=== PATIENT | female | born 2005 ===

== ENCOUNTER 2024-07-04 16:36 | Emergency (ER) | payer SELFPAY ==
[2024-07-04 16:38] VITALS: BP 109/80
[2024-07-04 16:59] LABS: % Basophils 0.4 % (0-2); % Eosinophils 0.9 % (0-6); % Immature Granulocytes 0.1 % (0-0.5); % Lymphocytes 30.7 % (20.5-51.1); % Monocytes 6.4 % (1.7-9.3); % Neutrophils 61.5 % (42.2-75.2); Absolute Eosinophils 0.1 10^3/uL (0-0.7); Absolute Lymphocytes 2.1 10^3/uL (1.2-3.4); Absolute Monocytes 0.4 10^3/uL (0.1-0.6); Absolute Neutrophils 4.2 10^3/uL (1.4-6.5); Hemoglobin 10.3 g/dL (12.0-16.0); Mean Corp Hgb Conc. 32.2 g/dL (33.0-37.0); Mean Corpuscular Hgb 23.5 pg (27.0-31.0); Mean Corpuscular Volume 72.9 fL (81.0-99.0); Mean Platelet Volume 10.8 fL (7.4-10.4); Nucleated Red Blood Cells % 0 %; Platelet Count 336 10^3/uL (130-400); Red Blood Cell Count 4.39 10^6/uL (4.20-5.40); Red Cell Dist. Width 15.2 % (11.5-14.5); White Blood Cell Count 6.9 10^3/uL (4.8-10.8)
[2024-07-04 17:13] LABS: Blood Urea Nitrogen 8 mg/dl (7-17); Calcium 9.4 mg/dl (8.4-10.2); Carbon Dioxide 23 mmol/L (22-30); Chloride 100 mmol/L (98-107); Glucose 97 mg/dl (70-99); Potassium 3.8 mmol/L (3.5-5.1); Sodium 134 mmol/L (135-145); eGFR > 60.00
[2024-07-04] MEDS: NSS 1000 IV (19:13)
[2024-07-04] MEDS: COMPAZINE 10 MG IV (19:13)
[2024-07-04 19:34] LABS: Urine Albumin Trace (Neg - Trace); Urine Bilirubin 1+ (Negative); Urine Character Slightly Cloudy (Clear); Urine Color Yellow; Urine Glucose Negative (Negative); Urine Ketone 1+ (Negative); Urine Leukocyte Trace (Negative); Urine Nitrite Negative (Negative); Urine Occult Blood Negative (Negative); Urine Specific Gravity 1.015 (<1.030); Urine Urobilinogen Negative (Neg - 1+)
[2024-07-04 19:47] LABS: Urine Amorphous Seen; Urine Mucus Moderate; Urine Squamous Cell >30 /LPF (Few)
[2024-07-04 19:48] LABS: Urine Bacteria Few (Negative); Urine Red Blood Cell 0-2 /HPF (0-2); Urine White Cell 0-2 /HPF (0-5)
[2024-07-04 20:03] VITALS: BP 106/74
--- NOTE | 2024-07-04 20:27 | ED.GENMED ---
History of Present Illness
General
Chief Complaint: Problems
Source: patient
Exam Limitations: none
Time Seen by Provider: 07/04/24 18:28
Nursing documentation reviewed up to this point in time: agreed with
History of Present Illness
History of Present Illness:
Patient, G1Po, who is currently 12 weeks via last menstrual cycle, presents to ED secondary to 2-day history of lower abdominal pain along with continual nausea and vomiting since onset of . Denies fever or chills. Denies vaginal
bleeding. Denies trauma. Denies difficulty urination or painful urination. Patient has not had any initial ENTRY LEVEL PROJECT COORDINATOR evaluation. Denies dizziness or weakness. Denies shortness of breath. Denies recent illness.
Review of Systems
Review of Systems
Allergies reviewed?: Yes
All Other Systems: ROS reviewed and negative except as documented in HPI and ROS
Constitutional: Reports no symptoms
EENT: Reports no symptoms
Respiratory: Reports no symptoms
Cardiac: Reports no symptoms
ABD/GI: Reports abdominal pain, nausea and vomiting
: Reports no symptoms; Denies bleeding
Musculoskeletal: Reports no symptoms
Skin: Reports no symptoms
Neurological: Reports no symptoms
Phy Exam
Physical Exam
Physical Exam:
Physical Exam
General: no apparent distress, not acutely ill. afebrile
Head: nc/at. eomi
Neck: supple. normal range of motion
Heart: s1/s2 regular rate and rhythm, no murmur. equal radial pulses.
Lungs: no acute respiratory distress. clear bilaterally
Abdomen: normal bowel sounds. not tender.
Neuro: alert and oriented x 3. no focal neurological deficits
Skin: no rash
Psychiatric: well kept. interactive and cooperative
Extremities: no edema. no calf tenderness.
Course
Orders/Labs/Results
Orders:
Orders
07/04/24 16:47
BMP [Basic Metabolic Panel] Urgent
Beta HCG Quantitative Urgent
Comment: ADD ON
Complete Blood Count/With Diff Urgent
07/04/24 17:17
Add On- LAB Urgent
Comments:: known
Tests Added?: hcg quantitative, serum
07/04/24 19:06
1st Trimester US [US 1st Trimester] Urgent
Comment:
Reason For Exam: lower abdominal pain
07/04/24 19:07
0.9% Sodium Chloride 1000 ml [Nss] 1,000 ml IV BOLUS
Prochlorperazine [Compazine] 10 mg IV NOW STA
07/04/24 19:24
Urinalysis Reflex To Culture Urgent
Date Specimen was Collected: 07/04/24
Time Specimen was Collected: 19:21
Urine Microscopic Reflex Cult Urgent
Abnormal Lab Results
07/04/24 07/04/24
16:47 19:24
Hgb 10.3 L g/dL
(12.0-16.0)
Hct 32.0 L %
(37.0-47.0)
MCV 72.9 L fL
(81.0-99.0)
MCH 23.5 L pg
(27.0-31.0)
MCHC 32.2 L g/dL
(33.0-37.0)
RDW 15.2 H %
(11.5-14.5)
MPV 10.8 H fL
(7.4-10.4)
Sodium 134 L mmol/L
(135-145)
Creatinine 0.5 L mg/dL
(0.6-1.0)
Urine Ketones 1+ A
(Negative)
Urine Bilirubin 1+ A
(Negative)
Leukocyte Esterase Rfl Trace A
(Negative)
Urine Bacteria (Reflex) Few A
(Negative)
07/04/24 16:47
07/04/24 16:47
Vital Signs
Initial and Last Documented VS:
Initial Vital Signs
Temp Pulse Resp BP Pulse Ox
98.3 F 92 20 109/80 99
07/04/24 16:38 07/04/24 16:38 07/04/24 16:38 07/04/24 16:38 07/04/24 16:38
Last Documented Vital Signs
Temp Pulse Resp BP Pulse Ox
98.3 F 88 18 106/74 99
07/04/24 16:38 07/04/24 20:03 07/04/24 20:03 07/04/24 20:03 07/04/24 20:03
Information
Weeks gestation: Weeks: (11)
Location: Location: ([facility])
MDM/Problems Addressed
MDM/Problems Addressed:
Pelvic ultrasound report reviewed and discussed with patient. Unfortunately, patient currently has no insurance. As patient is a [place] resident, advised that she calls [facility] and be evaluated at [facility]. Patient
expresses understanding at time of discharge.
*Critical Care Note
Total Time (30-74mins, 75-104mins- exclusive of procedures): Not Applicable
ED Attending Note
-
Portions of this chart may have been created with voice recognition software.� Occasional wrong word or��sound alike� substitutions may have occurred due to the inherent limitations of voice recognition software.
Discharge Plan
Departure
Patient Disposition: Home (Routine Discharge)
Date of Disposition: 07/04/24
Time of Disposition: 21:05
Patient with high blood pressure during this ER visit?: Yes
Discharge Problem:
Threatened miscarriage
Instructions: Threatened Miscarriage (DC)
Prescriptions:
New
ondansetron 4 mg Tablet,Disintegrating
4 mg PO TIDPRN PRN (Reason: nausea/vomiting) Qty: 12 0RF
Referrals:
NONE,* [Family Provider] -
Activity Restrictions/Additional Instructions:
As discussed, you must follow-up with an ENTRY LEVEL PROJECT COORDINATOR physician for further evaluation and treatment. In the meantime, as you currently do not have health insurance, strongly recommend contacting [facility] and [facility].
Please return to ED immediately with worsening pain/vaginal bleeding.
Interventions
Interventions:
*Risk Screen - Suicide Last Done: 07/04/24 19:32
*General Assessment Last Done: 07/04/24 16:38
*Neglect/Abuse Screening Last Done: 07/04/24 19:32
ED- Fall Risk Assessment Last Done: 07/04/24 21:14
*ED COVID-19 Vaccine History Last Done: 07/04/24 20:04
*Nursing Disposition Last Done: 07/04/24 21:14
ED-Female Genitourinary Assessment Last Done: 07/04/24 21:14
Discharge Date and Time
Discharge Date/Time: 07/04/24 21:14
Print Language: CHINESE
== END 2024-07-04 21:14 | disposition home or self-care (01) ==
LOC: EMR 16:36
PROVIDERS: EMERGENCY PHYSICIAN Emergency Medicine
DX: O20.0 Threatened abortion (principal); Z3A.12 12 weeks gestation of pregnancy; Z59.71 Insufficient health insurance coverage
CPT/HCPCS: 99284; 96374; 96361; 76801; 80048; 81003; 81015; 84702; 85025